=== PATIENT | male | born 1950 | race Caucasian/White ===

== ENCOUNTER 2021-04-28 06:52 | Day surgery (SDC) | payer MEDICARE ==
[~2021-04-28] VITALS: Ht 182.9 cm; Wt 87.8 kg
[~2021-04-28 06:52] MED LIST: Adult Low Dose81 MG PO; CLOP75 PO; FISH1000 PO; Hair, Skin & N1 EACH PO; LOSA25 PO; METO50 PO; SIMV40 PO
[2021-04-28] MEDS ORDERED: Avodart0.5 MG (07:10)
== END 2021-04-28 08:47 | disposition home or self-care (01) ==
LOC: ORSCSDS 06:52
PROVIDERS: Student in an Organized Health Care Education/Training Program
PROC: 0DB48ZX Excision of Esophagogastric Junction, Via Natural or Artificial Opening Endoscopic, Diagnostic (ICD-10-PCS; principal; 2021-04-28 08:15)
PROC: 0D758ZZ Dilation of Esophagus, Via Natural or Artificial Opening Endoscopic (ICD-10-PCS; principal; 2021-04-28 08:15)
PROC: 0DB18ZX Excision of Upper Esophagus, Via Natural or Artificial Opening Endoscopic, Diagnostic (ICD-10-PCS; principal; 2021-04-28 08:15)
DX: R13.10 Dysphagia, unspecified (principal); K20.80 Other esophagitis without bleeding; K22.2 Esophageal obstruction; K44.9 Diaphragmatic hernia without obstruction or gangrene; I25.10 Atherosclerotic heart disease of native coronary artery without angina pectoris; I10 Essential (primary) hypertension; Z79.01 Long term (current) use of anticoagulants; Z79.899 Other long term (current) drug therapy; Z79.82 Long term (current) use of aspirin
CPT/HCPCS: 88305; 88312; C1726; J2704; J7120